=== PATIENT | female | born 1980 | race Caucasian/White ===

== ENCOUNTER 2019-01-30 15:18 | Emergency (ER) | payer SELFPAY ==
[~2019-01-30] VITALS: Ht 165.1 cm; Wt 82.6 kg
[2019-01-30 15:18] VITALS: BP_SYST 107
--- NOTE | 2019-01-30 15:18 | NUR ---
BROUGHT IN BY [facility] AND PLACED IN ROOM #5, TRIAGED. REPORT GIVEN TO AVRIL
--- NOTE | 2019-01-30 15:40 | NUR ---
PT STATES THAT SHE WOULD LIKE TO STAY AT THIS HOSPITAL FOR A LONG TIME, EXPLAINED TO PT THAT DR MENDOZA WILL SEE HER AND DECIDE, PT PRETENDED TO PASS OUT. OPENS ONE EYE TO SEE WHATS GOING ON.
--- NOTE | 2019-01-30 15:50 | NUR ---
pt bib paramedics for an anxiety attack. Pt reports that she ran out of Thorazine, however, she does not know the dosage, a perscribing MD, or when she last took the medication. It is difficult to get further information from the pt. She only states that she wants to stay in the hospital.
--- NOTE | 2019-01-30 15:58 | NUR ---
pt left outside to smoke, after being told that is its unsafe.
[2019-01-30 16:01] LABS: BASOPHILS # (AUTO) 0.1 K/uL (0.0-0.2); BASOPHILS % (AUTO) 0.7 % (0.0-2.0); EOSINOPHILS # (AUTO) 0.3 K/uL (0.0-0.4); EOSINOPHILS % (AUTO) 2.3 % (0.0-4.0); HEMATOCRIT 39.2 % (36-48); HEMOGLOBIN 13.2 g/dL (12.0-16.0); LYMPHOCYTES # (AUTO) 4.2 K/uL (1.0-5.5); LYMPHOCYTES % (AUTO) 36.3 % (20.5-51.5); MEAN CORPUSCULAR HEMOGLOBIN 27 pg (27-31); MEAN CORPUSCULAR HGB CONC 34 % (32-36); MEAN CORPUSCULAR VOLUME 81 fL (79.0-98.0); MONOCYTES % (AUTO) 8.8 % (1.7-9.3); NEUTROPHILS % (AUTO) 51.9 % (40.0-70.0); PLATELET COUNT (AUTO) 412 K/uL (130-430); RED BLOOD CELL COUNT(AUTO) 4.84 MIL/uL (4.2-6.2); RED CELL DISTRIBUTION WIDTH 13.3 % (9.0-15.0); WHITE BLOOD COUNT (AUTO) 11.5 K/uL (4.8-10.8)
--- NOTE | 2019-01-30 16:01 | NUR ---
PER RN AVRIL, SHE TOLD PATIENT NOT TO LEAVE AND SMOKE. PATIENT WALKED OUT.
--- NOTE | 2019-01-30 16:09 | NUR ---
PATIENT CAME BACK IN, ESCORTED BY SECURITY. EDUCATED PATIENT NOT TO LEAVE. PATIENT VERBALIZED UNDERSTANDING.
--- NOTE | 2019-01-30 16:11 | NUR ---
PATIENT WALKED OUT AGAIN.
--- NOTE | 2019-01-30 16:15 | NUR ---
PT WITNESSED BY SECURITY TO WALK OFF CAMPUS TO DR KELLY HUTCHINSON AWARE
[2019-01-30 16:19] LABS: ANION GAP 10 (5-15); CALCIUM 9.6 mg/dL (8.4-11.0); CHLORIDE 106 mmol/L (98-107); CREATININE 0.67 mg/dL (0.55-1.30); GLUCOSE 104 mg/dL (70-99); POTASSIUM 3.5 mmol/L (3.5-5.1); SODIUM SERUM 139 mmol/L (136-145); UREA NITROGEN, BLOOD 8 mg/dL (8-21)
[2019-01-30 16:21] LABS: GFR AFRICAN AMERICAN 127 mL/min (>90)
--- NOTE | 2019-01-30 16:25 | NUR ---
PER DR MENDOZA, [employer] CALLED AND SPOKE WITH OFFICER INGE. THEY WILL SEND A CAR WHEN THEY CAN.
[2019-01-30 16:32] LABS: ALANINE AMINOTRANSFERASE 22 U/L (12-78); ALBUMIN 3.4 g/dL (3.4-4.8); ASPARTATE AMINOTRANSFERASE 15 U/L (10-37); TOTAL BILIRUBIN 0.2 mg/dL (0.0-1.0)
[2019-01-30 16:34] LABS: ACETAMINOPHEN < 1 ug/mL (1-30); ALCOHOL, BLOOD < 3 mg/dL (<10)
--- NOTE | 2019-01-30 16:46 | NUR ---
PT RETURNED TO ROOM #5
--- NOTE | 2019-01-30 16:47 | NUR ---
[facility] NOTIFIED THAT PT HAS RETURNED TO ER.
[2019-01-30 16:54] LABS: BARBITURATE, URINE NEGATIVE (NEG <=200); BENZODIAZEPINE, URINE POSITIVE (NEG <=150); CANNABINOID, URINE NEGATIVE (NEG <=50); COCAINE, URINE NEGATIVE (NEG <=150); METHAMPHETAMINES SCREEN,URINE NEGATIVE (NEG <=500); OPIATE, URINE NEGATIVE (NEG <=100); PHENCYCLIDINE SCREEN,URINE NEGATIVE (NEG <=25); UR TRICYCLIC ANTIDEPRESSANTS NEGATIVE (NEG <=300); URINE AMPHETAMINE NEGATIVE (NEG <=500); URINE METHADONE NEGATIVE (NEG <=200); URINE OXYCODONE SCREEN NEGATIVE (NEG <=100); URINE PROPOXYPHENE SCREEN NEGATIVE (NEG <=300)
--- NOTE | 2019-01-30 17:40 | NUR ---
PT IS ALERT AND ORIENTED WITH STEADY GAIT, ABLE TO STATE ADDRESS AND THAT SHE LIVES WITH HER MOTHER. DR MENDOZA SPOKE WITH HER MOTHER. PT STATES SHE WOULD LIKE TO LEAVE, DR MENDOZA AT BEDSIDE SPEAKING WITH PT.
--- NOTE | 2019-01-30 17:45 | NUR ---
AFTER SPEAKING WITH DR MENDOZA, PT DECIDED TO WALK OUT BACK DOOR.
--- NOTE | 2019-01-30 17:49 | NUR ---
pt eloped form the ER again. Pt stated that she does not want to stay in the ER any longer. notified.
--- NOTE | 2019-01-30 17:50 | NUR ---
PT ELOPED FROM ER
[2019-01-30 18:00] VITALS: BP_SYST 107
== END 2019-01-30 17:50 | disposition left against medical advice (07) ==
LOC: SED 15:18
DX: F20.9 Schizophrenia, unspecified (principal); Z88.2 Allergy status to sulfonamides; Z88.8 Allergy status to other drugs, medicaments and biological substances; Z53.20 Procedure and treatment not carried out because of patient's decision for unspecified reasons
CPT/HCPCS: 36415; 80053; 80307; 84703; 85025; 99283; G0480; G0481; G0482

== ENCOUNTER 2019-01-31 04:38 | Emergency (ER) | payer SELFPAY ==
[~2019-01-31] VITALS: Ht 165.1 cm; Wt 82.6 kg
[2019-01-31 04:38] VITALS: BP_SYST 118
--- NOTE | 2019-01-31 04:45 | NUR ---
Patient to ER bed 5 to gown for evaluation. Side rails up.
--- NOTE | 2019-01-31 04:50 | NUR ---
PT came into ED for medical evaluation. Pt was bib by EMS after being [facility] a plaza [facility]. Reports she had 1 episode of green emesis after drinking a slurpee. Pt states, "I just want to shower, brush my teeth and make sure I am not ." Reports HX of schizophrenia and bipolar but has been non-compliant. NO other complaints/injuries noted. Will cont. to monitor.
--- NOTE | 2019-01-31 05:00 | NUR ---
ER at bedside examining patient.
--- NOTE | 2019-01-31 05:30 | NUR ---
Pt states that she would like to go outside to smoke a cigarette, pt educated not to do so.
[2019-01-31 06:07] VITALS: BP_SYST 118
--- NOTE | 2019-01-31 06:07 | NUR ---
Patient given written and verbal discharge instructions and verbalizes understanding. ER MD Dr. Rodgers discussed with patient the results and treatment provided. Patient in stable condition. ID arm band removed. IV catheter removed intact and dressing applied, no active bleeding. Patient educated on pain management and to follow up with PMD. Pain Scale 0/10. Opportunity for questions provided and answered. Medication side effect fact sheet provided.
== END 2019-01-31 06:07 | disposition home or self-care (01) ==
LOC: SED 04:38
DX: F20.9 Schizophrenia, unspecified (principal); F17.200 Nicotine dependence, unspecified, uncomplicated; Z88.2 Allergy status to sulfonamides; Z79.899 Other long term (current) drug therapy
CPT/HCPCS: 99283